=== PATIENT | female | born 1970 | race Caucasian/White ===

== ENCOUNTER 2023-08-04 10:30 | Outpatient (CLI) | payer OTHER, SELFPAY ==
[2023-08-04 10:55] VITALS: BP 129/82; PULSE 59; RESP 20; TEMP 36.7; O2SAT 98
--- NOTE | 2023-08-04 11:31 | DI.RAD_ITS ---
Exam(s) XR PAIN CLINIC SACRIOILIAC 2V EXAM: XR PAIN CLINIC SACRIOILIAC 2V CLINICAL HISTORY: Dx: Sacroiliac Joint Dysfunction TECHNIQUE: 2D and realtime digital imaging was performed. CONTRAST MATERIAL: Refer to procedure report. COMPARISON: No exams were available for comparison FINDINGS: Fluoroscopy was provided for Dr. Wilkerson during the performance of a right SI joint injection. Please refer to the procedure report for complete details. Ka,r=7.43 mGy IMPRESSION: RADIATION DOSE DELIVERED:
[2023-08-04 11:32] VITALS: BP 127/71; PULSE 88; RESP 16; O2SAT 100
[2023-08-04] MEDS: methylPREDNISolone ACETATE 80 MG/ML VIAL IJ (11:34)
[2023-08-04] MEDS: Omnipaque 240 MG/ML 50 ML BTL IJ (11:34)
--- NOTE | 2023-08-04 13:12 | PDOC.PAIN ---
Date of service: 08/04/23 Time of Service: 12:00 Pain Managment Procedure Note Procedure Note Procedure Note: PROCEDURE NOTE RIGHT INTRA-ARTICULAR SACROILIAC JOINT INJECTION Date of Service: August 04, 2023 Patient: Tanya Baxter Provider: Asad Wilkerson DO, MPH COMMENTS: I previously evaluated the patient in the office and their symptoms in relation to the sacroiliac joint pain have remained the same. Pre-operative diagnosis: Sacroiliac joint dysfunction Post-operative diagnosis: Same Pre-procedure pain: VAS= 6/10 Tanya Baxter has been referred to [facility] for a Right intra-articular Sacroiliac joint injection. Tanya was interviewed and the medical record reviewed. There were no medical, pharmacologic, radiographic or other structural contraindications to attempting a fluoroscopically-guided, contrast-enhanced, intra-articular Sacroiliac joint injection. The risks, benefits, and potential side effects of this procedure were reviewed with the patient. Questions and concerns were addressed. After it was clear that Tanya was fully informed about the procedure, the printed consent form was signed by the patient and myself. Tanya was placed in the prone position on the fluoroscopy table and an automated blood pressure cuff, 3 lead EKG, and pulse oximeter were applied. The skin entry point for approaching the Right sacroiliac joint was identified under the most advantageous fluoroscopic view and marked. Following thorough Chlorhexadine preparation of the skin and draping with sterile surgical drapes, 2 mls of 1% lidocaine was infiltrated into the skin at the entry point and the surrounding subcutaneous tissues. Next, a 3.5 22G spinal needle was placed under fluoroscopic guidance into the Right sacroiliac joint. Intra-articular placement was confirmed by a clear arthrogram resulting from the injection of 0.25ml of Omnipaque-240. Next, 1 ml of Depo- Medrol 80 mg/ml was injected intra-articularly with an initial reproduction of a significant component of the usual pain. This was followed with 1 ml of 1% Lidocaine. The needle was then removed without difficulty. (49 ml of Omnipaque-240 was wasted). Tanya's vital signs were stable throughout the procedure and were as recorded in nursing records. Follow up plans and appointments were discussed with Tanya. Post procedure instructions were given as documented in nursing records. Having met discharge criteria, T[facility] was [facility] from the [facility] COMMENTS: Post-procedure pain: VAS= 3/10. If the patient receives at least 50% improvement in pain and/or function for at least 3 months, this procedure can be repeated if needed. I personally performed this entire procedure. ASAD WILKERSON DO, MPH ABPMR-subspecialty board certification in Pain Medicine [facility]
== END 2023-08-04 10:31 | disposition home or self-care (01) ==
LOC: PC 10:35
PROVIDERS: PCP Internal Medicine; Visit Provider Preventive Medicine Occupational Medicine
DX: M46.1 Sacroiliitis, not elsewhere classified (principal)
CPT/HCPCS: 00123; 27096; 72200; J1040; Q9967